=== PATIENT | male | born 1990 | race Hispanic/Latino ===

== ENCOUNTER 2018-08-01 02:22 | Observation (INO) | payer BC ==
[2018-08-01] MEDS ORDERED: Tdap Vaccine 0.5 ml Vial (10-64 yrs) IM ONE ×2 (03:10→03:21)
--- NOTE | 2018-08-01 03:35 | ED PDOC ---
HPI: Trauma/Fall <Meg Ingram - Last Filed: 08/01/18 07:05> - HPI Chief Complaint (Provider): Trauma History Per: Patient History/Exam Limitations: no limitations Onset/Duration Of Symptoms: Hrs Additional Complaint(s): Patient is a 27 y/o male with no significant PMHx who states earlier today was sleeping, rolled out of bed, and fell face first. Patient woke up in a pool of blood. Patient complains of nasal pain. Patient denies loss of consciousness, neck pain, and any other injury. Of note, patient admits to drinking alcohol last night. PCP: None <Quincy Staton - Last Filed: 08/02/18 03:08> - HPI Time Seen by Provider: 08/01/18 02:55 Chief Complaint (Nursing): Trauma Supervising Attending Note - Supervising Attending Note The Documented history was done by the: Physician Supervising Airplane Pilot The documented physical exam was done by the: Physician Supervising Airplane Pilot The documented procedures were done by the: Physician Supervising Airplane Pilot - Attestation: I have personally seen and examined this patient.: Yes I have fully participated in the care of the patient.: Yes I have reviewed all pertinent clinical information, including history, physical exam and plan: Yes - Notes: Notes:: Time: 0700 Patient endorsed from provider to Leana Lezama MD. Patient presented with fall sustaining injury to nose. CT snasal bone fracture. Cosmetic surgeon, Dr. Goetz, will arrive to suture patient. Patient aware he is waiting for specialist. <Meg Ingram - Last Filed: 08/01/18 07:05> Past Medical History Vital Signs: Last Vital Signs Temp 98.0 F 08/01/18 02:55 Pulse 73 08/01/18 02:55 Resp 16 08/01/18 02:55 BP 109/66 08/01/18 02:55 Pulse Ox 98 08/01/18 05:27 <Meg Ingram - Last Filed: 08/01/18 07:05> Reviewed: Historical Data, Nursing Documentation, Vital Signs Vital Signs: Last Vital Signs Temp 98.0 F 08/01/18 02:55 Pulse 73 08/01/18 02:55 Resp 16 08/01/18 02:55 BP 109/66 08/01/18 02:55 Pulse Ox 98 08/01/18 02:55 Primary Care Provider: FAMILY PROVIDER,NO - Medical History PMH: Arthritis Denies: Chronic Kidney Disease - Surgical History Surgical History: No Surg Hx - Family History Family History: States: No Known Family Hx - Social History Alcohol: > 2 Drinks/Day - Immunization History Hx Tetanus Toxoid Vaccination: No <Quincy Staton E - Last Filed: 08/02/18 03:08> - Home Medications Home Medications: Ambulatory Orders Medication Instructions Recorded DULoxetine [Cymbalta] 20 mg PO DAILY 08/01/18 Escitalopram [Lexapro] 1 tab PO DAILY 08/01/18 - Allergies Allergies/Adverse Reactions: Allergies Allergy/AdvReac Type Severity Reaction Status Date / Time No Known Allergies Allergy Verified 08/01/18 03:00 Review of Systems ROS Statement: Except As Marked, All Systems Reviewed And Found Negative ENT: Positive for: Nose Pain Musculoskeletal: Negative for: Neck Pain Neurological: Negative for: Other (loss of consciousness) <Quincy Staton E - Last Filed: 08/02/18 03:08> Physical Exam - Reviewed Nursing Documentation Reviewed: Yes Vital Signs Reviewed: Yes - Physical Exam Appears: Positive for: No Acute Distress Head Exam: Positive for: ATRAUMATIC, NORMAL INSPECTION, NORMOCEPHALIC Skin: Positive for: Normal Color, Warm, DRY Eye Exam: Positive for: EOMI, Normal appearance, PERRL ENT: Positive for: TM Is/Are ( normal; no hemotympanum bilaterally), Other (Nose: 1 cm hook shaped laceration with surrounding swelling and ecchymosis; no septal hematoma bilaterally) Neck: Positive for: Normal (no c-spine tenderness), Painless ROM, Supple Cardiovascular/Chest: Positive for: Regular Rate, Rhythm. Negative for: Murmur Respiratory: Positive for: Normal Breath Sounds. Negative for: Respiratory D istress Gastrointestinal/Abdominal: Positive for: Normal Exam, Soft. Negative for: Tenderness Back: Positive for: Normal Inspection. Negative for: L CVA Tenderness, R CVA Tenderness Extremity: Positive for: Normal ROM. Negative for: Pedal Edema, Deformity Neurological/Psych: Positive for: Alert, Oriented (x3), Gait (steady, unassisted) <Quincy Staton E - Last Filed: 08/02/18 03:08> - ECG O2 Sat by Pulse Oximetry: 98 (RA) Pulse Ox Interpretation: Normal <Quincy Staton - Last Filed: 08/02/18 03:08> Medical Decision Making Medical Decision Making: Time: 309 Impression: Facial Injury Plan: CT Head w/o Contrast CT Maxillofacial w/o Contrast Adacel 0.5 ml IM Pt. requested plastic surgery eval. Case d/w Dr. Goetz who will come to ED and repair laceration. Time: 520 CT Maxillofacial Findings: Moderate chronic mucosal inflammatory changes of the left frontal sinus. Mild chronic mucosal inflammatory changes of the ethmoid air cells. Air-fluid level in the left sphenoid sinus suggestive of acute sinusitis/secretions. Minimal chronic mucosal inflammatory changes in the maxillary sinuses. Acute displaced fractures of the nasal bones. Overlying soft tissue edema and swelling. Normal bilateral orbital contents. Normal bilateral medial and inferior orbital mueller. Normal bilateral maxillary bones. Normal bilateral maxillary sinuses. Normal bilateral frontozygomatic arches. Normal bilateral zygomatic temporal arches. Normal anterior nasal spine. Impression: Moderate chronic mucosal inflammatory changes of the left frontal sinus. Mild chronic mucosal inflammatory changes of the ethmoid air cells. Air-fluid level in the left sphenoid sinus suggestive of acute sinusitis/secretions. Minimal chronic mucosal inflammatory changes in the maxillary sinuses. Acute displaced fractures of the nasal bones. Overlying soft tissue edema and swelling. Time: 522 CT Head FINDINGS: Acute displaced fractures of the nasal bones. Secretions in the left sphenoid sinus. Chronic mucosal inflammatory changes in the left frontal sinus and ethmoid air cells. Normal size of the ventricles and extra-axial spaces for the patient's age. Normal white matter tracts of the supratentorial brain. Normal basal ganglia and thalami. Normal brainstem. Normal cerebellum. There is no demonstrated extra-axial, intraparenchymal, or intraventricular hemorrhage. There are no findings of an acute ischemic infarction. Normal calvarium. IMPRESSION: Normal unenhanced CT scan of the brain. Acute displaced fractures of the nasal bones. Secretions in the left sphenoid sinus. Chronic mucosal inflammatory changes in the left frontal sinus and ethmoid air cells. Electronically signed on August 01, 2018 5:23:36 AM EDT by: Francis Guerrero M.D., Certified by ABR, MSK, Neuroradiology Thank you for your kind referral of this patient. Electronically signed on August 01, 2018 5:21:44 AM EDT by: Francis Guerrero M.D., Certified by JERROD HAYS, Neuroradiology Scribe Attestation: Documented by Mckinley Connelly, acting as a scribe for Quincy Staton PA-C Provider Scribe Attestation: All medical record entries made by the Scribe were at my direction and personally dictated by me. I have reviewed the chart and agree that the record accurately reflects my personal performance of the history, physical exam, medical decision making, and the department course for this patient. I have also personally directed, reviewed, and agree with the discharge instructions and disposition. <Quincy Staton - Last Filed: 08/02/18 03:08> Disposition <Meg Inrgam - Last Filed: 08/01/18 07:05> - Patient ED Disposition Is Patient to be Admitted: Transfer of Care (Dr. Ingram continued care at the end of my shift pending Dr. Goetz's evaluation.) - Disposition Disposition Time: 06:00 <Quincy Staton - Last Filed: 08/02/18 03:08> - Clinical Impression Clinical Impression: Head injury, Facial laceration - Disposition Condition: STABLE
--- NOTE | 2018-08-01 07:50 | ED PDOC ---
- ECG O2 Sat by Pulse Oximetry: 98 (RA) Medical Decision Making Medical Decision Making: Time: 0700 --Patient is endorsed to provider pending evaluation by Dr. Goetz and final disposition. Time: 0858 --Upon Dr. Goetz's evaluation, patient will require admission to OR for open nasal fracture. Requesting Rx for Perc 5/325mg x20 tabs, Zofran 4mg x10 tabs, and Duricef 500 BID x14 days. Scribe Attestation: Documented by Alexandra Chew, acting as a scribe for Leana Lezama MD. Provider Scribe Attestation: All medical record entries made by the Scribe were at my direction and personally dictated by me. I have reviewed the chart and agree that the record accurately reflects my personal performance of the history, physical exam, medical decision making, and the department course for this patient. I have also personally directed, reviewed, and agree with the discharge instructions and disposition. Disposition - Clinical Impression Clinical Impression: Head injury, Facial laceration - POA Present On Arrival: Falls Or Trauma - Disposition Disposition: Hospitalized as Observation Patient Disposition Time: 08:40 Condition: STABLE
[2018-08-01] MEDS ORDERED: ceFAZolin 1 GM in Sodium Chloride 0.9% 100 ML IVPB STA (09:02)
[2018-08-01] MEDS ORDERED: Propofol 10 mg/ml Inj (20 ML) ONE (10:06)
[2018-08-01] MEDS ORDERED: Midazolam 2 MG/2 ML VIAL ONE (10:06)
[2018-08-01] MEDS ORDERED: Bacitracin Ointment 30 GM TUBE ONE (10:14)
[2018-08-01] MEDS ORDERED: Lidocaine 2% w Epi 1:100,000 Inj IJ ONE (10:14)
[2018-08-01] MEDS ORDERED: Lidocaine 1% w Epi 1:100,000 Inj ONE (10:14)
[2018-08-01] MEDS ORDERED: Liquid Adhesive TOP ONE (10:17)
[2018-08-01] MEDS ORDERED: Desflurane Inhalation Anesthetic Liq (240 ml) ONE (10:43)
[2018-08-01] MEDS ORDERED: Lactated Ringer's 1,000 ML IV ONE (10:48)
[2018-08-01] MEDS: HYDROmorphone 0.5 mg/0.5 ml ISec IVP PRN ×2 (11:15→12:10)
--- NOTE | 2018-08-01 11:17 | PCM.SURG1 ---
Surgeon's Initial Post Op Note - Surgeon's Notes Surgeon: Dr. Rodarte Parachute/Combatant Diver Officer: Lamberto PGY2 Type of Anesthesia: General LMA, Block Regional, Local Anesthesia Administered By: Dr. Carson Pre-Operative Diagnosis: Open bilateral nasal bone fracture Operative Findings: Open bilateral nasal bone fracture Post-Operative Diagnosis: Open bilateral nasal bone fracture Operation Performed: Closed reduction of nasal septal fracture Specimen/Specimens Removed: N/A Estimated Blood Loss: EBL {In ML}: 10 Blood Products Given: N/A Drains Used: No Drains Post-Op Condition: Good Date of Surgery/Procedure: 08/01/18 Time of Surgery/Procedure: 11:16
--- NOTE | 2018-08-01 11:22 | CP.SDSHP ---
Same Day Surgery H & P - History Proposed Procedure: closed reduction of nasal septal fracture Pre-Op Diagnosis: open bilateral nasal bone fracture - Previous Medical/Surgical History Pain: 6.Severe Pain - Allergies Allergies: Allergies No Known Allergies Allergy (Verified 08/01/18 03:00) - Physical Exam Vital Signs: Vital Signs 08/01/18 08/01/18 08/01/18 05:27 07:51 09:05 Temperature 97.7 F Pulse Rate 65 Respiratory 18 Rate Blood Pressure 117/72 O2 Sat by Pulse 98 99 98 Oximetry 08/01/18 09:59 Temperature 97.7 F Pulse Rate 66 Respiratory 16 Rate Blood Pressure 115/70 O2 Sat by Pulse 98 Oximetry Mental Status: Alert & Oriented x3 Neuro: WNL Heart: WNL Lungs: WNL GI: WNL - {Optional Preform as Required} ENT: Other (open bilateral nasal bone fracture) - Impression Impression: 27 M with open bilateral nasal bone fracture Pt. Evaluated Today:Candidate for Anesthesia & Procedure: Yes - Date & Time Date: 08/01/18 Time: 09:00 Short Stay Discharge - Short Stay Discharge Admitting Diagnosis/Reason for Visit: OPEN NASAL FRACTURE Disposition: HOME/ ROUTINE Referrals: Yonny Goetz MD [Medical Doctor] - Additional Instructions (Diet, Activity): follow up Sunday 08/[address] Goetz's office Take percocet, zofran, cefadroxil as prescribed Do Not remove nose cask May change "mustache" bandage" as needed Call Dr. Goetz's office for any issues Progress Note/Discharge Note with Instructions: 27M who presents with open bilateral nasal bone fracture s/p closed reduction of nasal septal fracture
[2018-08-01] MEDS ORDERED: Oxycodone/Acetaminophen 5/325 mg Tab PO PRN (11:23)
--- NOTE | 2018-08-01 11:52 | CT ---
Date of service: 08/01/2018 PROCEDURE: CT HEAD WITHOUT CONTRAST. HISTORY: trauma COMPARISON: None available. TECHNIQUE: Axial computed tomography images were obtained through the head/brain without intravenous contrast. Radiation dose: Total exam DLP = 0.0 mGy-cm. This CT exam was performed using one or more of the following dose reduction techniques: Automated exposure control, adjustment of the mA and/or kV according to patient size, and/or use of iterative reconstruction technique. FINDINGS: HEMORRHAGE: No intracranial hemorrhage. BRAIN: No mass effect or edema. No atrophy or chronic microvascular ischemic changes. VENTRICLES: Unremarkable. No hydrocephalus. CALVARIUM: Unremarkable. PARANASAL SINUSES: Minimal chronic sphenoid, ethmoid and bilateral maxillary sinusitis. MASTOID AIR CELLS: Unremarkable as visualized. No inflammatory changes. OTHER FINDINGS: Minimally displaced fracture of the nasal tip. IMPRESSION: No intracranial hemorrhage. Minimal chronic paranasal sinusitis. Minimally displaced fracture of the nasal tip.
--- NOTE | 2018-08-01 11:59 | CT ---
Date of service: 08/01/2018 PROCEDURE: CT MAXILLOFACIAL BONES WITHOUT CONTRAST HISTORY: trauma COMPARISON: None available. TECHNIQUE: Contiguous axial CT images of the maxillofacial bones were obtained. Coronal and sagittal reformats were generated. Radiation dose: Total exam DLP = 1745.12 mGy-cm. This CT exam was performed using one or more of the following dose reduction techniques: Automated exposure control, adjustment of the mA and/or kV according to patient size, and/or use of iterative reconstruction technique. FINDINGS: NASAL BONES: Minimally depressed nasal tip fracture. ORBITS: There is a fracture of the nasal septum seen on series 2, image 89. There is also fracture of the anterior nasal septum seen on series 2, image 86. PARANASAL SINUSES/ MASTOIDS: Minimal chronic pansinusitis. MAXILLA: Unremarkable. MANDIBLE/ TEMPOROMANDIBULAR JOINTS: Unremarkable. SKULL BASE: Unremarkable. TEMPORAL BONES: Middle ears and mastoid grossly unremarkable. OTHER FINDINGS: None. IMPRESSION: Minimally depressed nasal tip fracture. Multipart fracture of the nasal septum as described. Mild chronic pansinusitis. No additional abnormality. The preliminary findings for this examination were reported by [facility] Radiology at time. There is discordance of this report with the preliminary findings. Nasal septal fracture is reported above were not described in the preliminary report of this examination.
[2018-08-01 12:47] VITALS: TEMP 98.2
[2018-08-01 13:25] VITALS: BP 145/76; PULSE 58; RESP 20; O2SAT 98
--- NOTE | 2018-08-01 14:27 | RAD ---
Date of service: 08/01/2018 PROCEDURE: Intraoperative fluoroscopy HISTORY: FLUOROSCOPY COMPARISON: Not available TECHNIQUE: Intraoperative fluoroscopy was provided for close reduction of nasal fracture. Total time of fluoroscopy was 6.0 sec. Cumulative dose was 0.19 mGy. FINDINGS: Two fluoroscopic spot films are submitted. IMPRESSION: Fluoroscopy provided.
--- NOTE | 2018-08-11 01:33 | CON ---
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 He had an obvious nasal deformity and an open nasal fracture. I was consulted as the plastic surgeon on-call. CAT scan of the maxillofacial bone showed a displaced, depressed nasal dorsal bone that was 90 degrees angulated. PHYSICAL EXAMINATION: The mid-portion of his nasal dorsum was significantly depressed. He had a 2.6-cm stellate laceration that was inverted V-shaped with exposed open fracture. His orbital bones were nontender. His mandible was nontender. His occlusion was normal. There was no double vision and no signs of any other injuries. The light reflex at the tip of his nose was slightly crooked. There was no septal hematoma. However, the septum did appear to be buckled and it was deviated to the right posteriorly. The patient has had previous nasal surgeries in the past. However, this is obviously a new acute injury. ASSESSMENT AND PLAN: I explained to the patient and his girlfriend that in the emergency room, I would clean out the wound, explore, see if the fractured bone is there, and see if I can do an emergency room reduction of the fracture. I told them there would be a scar and my job as a plastic surgeon was to minimize it. Told him he has to be on antibiotics for two weeks because of the open fracture. I said he could have a crooked nose, he may need to have emergent surgery after this. They understood and wished to proceed. I will now dictate a separate operative report. Yonny Goetz MD
--- NOTE | 2018-08-11 02:13 | OP ---
PROCEDURE DATE: 08/01/2018 SURGEON: Yonny Goetz MD PREOPERATIVE DIAGNOSES: 1. Stellate nasal dorsum laceration, 2.6 cm. 2. Open, displaced bilateral nasal bone fractures. 3. Acute septal fracture dislocation fracture. POSTOPERATIVE DIAGNOSES: 1. Stellate nasal dorsum laceration, 2.6 cm. 2. Open, displaced bilateral nasal bone fractures. 3. Acute septal fracture dislocation fracture. PROCEDURE PERFORMED: 1. Debridement of soft tissue and bone at open fracture site of nasal fracture. 2. Complex repair of 2.6 cm nasal laceration. ANESTHESIA: Local. INDICATIONS OF THE PROCEDURE: As follows: Please refer to my separately dictated ER consultation for history and physical. DESCRIPTION OF THE PROCEDURE: As follows: A 1% lidocaine with 1:100,000 epinephrine was used locally in the open nasal wound. After allowing sufficient time for the anesthetic to take effect, the wound was thoroughly irrigated with normal saline. Any retained debris was manually removed. The area was prepped and draped in the usual clean and sterile manner. I debrided some of the soft tissue and a tiny piece of bone at the open fracture site with scissor technique. The nasal fracture was significantly displaced and 90 degrees angulated in the nasal dorsum. I was unable to repair this in the emergency room. I then debrided the skin edges using 5-0 Monocryl to repair the nasalis muscle in an interrupted fashion, use a 5-0 Monocryl to line up and approximate the subcutaneous tissue and deep dermis in an interrupted fashion. I then closed the 2.6 cm stellate laceration in an interrupted fashion with 6-0 chromic sutures. After doing this, the wound edges were nicely aligned. I explained to the patient that his nose is significantly depressed in the mid portion of the dorsum, and I recommended going to the operating room where under fluoroscopy, possible open reduction, otherwise, using a to his nose. The patient agreed. He was then taken to the operating room, I will dictate that operative report. Yonny Goetz MD
--- NOTE | 2018-08-11 02:51 | OP ---
PROCEDURE DATE: 08/01/2018 SURGEON: Yonny Goetz MD REGULATORY SPECIALIST: Ney Orantes DO ANESTHESIOLOGIST: Cheko Carson DO PREOPERATIVE DIAGNOSES: 1. Open displaced bilateral nasal bone fracture. 2. Displaced acute nasal septal fracture dislocation. POSTOPERATIVE DIAGNOSES: 1. Open displaced bilateral nasal bone fracture. 2. Displaced acute nasal septal fracture dislocation. PROCEDURE PERFORMED: As follows; 1. Closed reduction with manipulation of bilateral nasal bone fractures. 2. Closed reduction with manipulation of septal fracture dislocation. 3. Use of fluoroscopy in the operating room. TYPE OF ANESTHESIA: General anesthesia with LMA as well as regional. 1. Left infraorbital nerve block. 2. Right infraorbital nerve block. 3. Left infratrochlear nerve block. 4. Right infratrochlear nerve block as well topical packing of 8 mL of 4% lidocaine mixed with 8 mL of 1:1000 epinephrine as well as local and the nasal side mueller with 1% lidocaine 1:100,000 epinephrine. INDICATIONS FOR THE PROCEDURE: As follows: This is a 27-year-old male who I closed this open nasal fracture in the ER, he has got a significantly displaced nasal bone dorsal fracture. I explained to the patient and his girlfriend to be taken to the operating room with mini-fluoroscopy. Under fluoroscopy, we would attempt to perform a closed possible open reduction of his nasal bone since this is an atypical and complicated fracture. I have explained he had previous nasal septal surgery. I have warned that he could have a nasal deformity, he could have a crooked nose, he could have breathing obstruction, he many need cartilage graft and future surgery. They understood this and wished to proceed. I also told them from the laceration, there will be a scar and my job as a plastic surgeon is to minimize it. I also told him he has to get an antibiotic for two weeks because of the open fracture and explicit postop instructions were given to the patient and his girlfriend. Informed consent was obtained. DESCRIPTION OF PROCEDURE: As follows: The patient was taken to the operating room and perioperative antibiotics were given; and SCDs were placed in bilateral lower extremities. I then prepped and draped in the usual clean and sterile manner. Lidocaine 1% with 1:100,000 epinephrine was used in the regional nerve block as well as locally with topical packing, four pledgets each above mentioned concoction were used for intranasal packing. After I did intranasal speculum exam, the septum is deviated significantly to the right posterior. There was no septal hematoma. I waited 10 to 15 minutes for vasoconstrictive effects of the medication to take effect. Then the fluoroscopy, we took a picture and the nasal dorsum at the most distal portion of the nasal bone was 90 degrees displaced. I then use a Bernal distractor and from the inside, I did a closed reduction with manipulation and then after doing several attempts under fluoroscopy, I was able to get a nice reduction. I then used an Asch forceps and squeezed the septum and cracked it. I put a packing in the midline of the vomer groove. Both nostrils are now patent. The light reflexes at the tip of the nose was not straight. I then placed Alvarez septal splint soaked with bacitracin in each nostrils, secured it with a transseptal 3-0 nylon horizontal mattress with Mastisol Steri-Strips over the nasal dorsum and then Aquaplast splint was fabricated and secured. The oropharynx and nasopharynx were sucked out. A drip pad was placed. The patient then awoke from anesthesia, transferred to the recovery room in stable condition. FINDINGS: As above. ESTIMATED BLOOD LOSS: 20 mL. DRAINS: Alvarez septal splint. COMPLICATIONS: None. CONDITION: Stable. Yonny Goetz MD
== END 2018-08-01 15:45 | disposition home or self-care (01) ==
LOC: H.ER 02:22 → H.ERHOLD 08:58 → H.MEDSURG1 12:55
PROVIDERS: ADMIT Surgery; ATTEND Surgery
DX: S02.2XXB Fracture of nasal bones, initial encounter for open fracture (principal); S01.21XA Laceration without foreign body of nose, initial encounter; W06.XXXA Fall from bed, initial encounter; Z23 Encounter for immunization; Y92.092 Bedroom in other non-institutional residence as the place of occurrence of the external cause
CPT/HCPCS: 11012; 13152; 21337; 70450; 70486; 76000; 90471; 90715; 99285; G0378; J0690; J1170; J2250; J2704; J3010; J7120